=== PATIENT | male | born 1960 | race Caucasian/White ===

== ENCOUNTER 2016-12-18 09:56 | Emergency (ER) | payer OTHER ==
[~2016-12-18 09:56] MED LIST: ASPIR 8181 MG PO; CITALOPRAM HBR40 MG PO; FOLIC ACID1 MG PO; METHOTREXATE2.5 MG PO; MOBIC7.5 MG PO; NORCO 7.5-3251 EACH PO; NORVASC 5 MG TAB5 MG PO; OTEZLA1 EAC1 PO; TYLENOL W/CODEIN1 E1 PO
== END 2016-12-18 12:00 | disposition home or self-care (01) ==
LOC: ER1 09:56
DX: J01.90 Acute sinusitis, unspecified (principal); I10 Essential (primary) hypertension; M06.9 Rheumatoid arthritis, unspecified; Z79.82 Long term (current) use of aspirin; Z79.899 Other long term (current) drug therapy
CPT/HCPCS: 87081; 87880; 99283

== ENCOUNTER → 2016-12-20 | Outpatient (CLI) | payer OTHER | LOC: MRI 09:00 | DX: M54.2 Cervicalgia (principal); M47.22 Other spondylosis with radiculopathy, cervical region; M50.321 Other cervical disc degeneration at C4-C5 level | CPT/HCPCS: 72141 ==

== ENCOUNTER → 2016-12-21 | Outpatient (CLI) | payer OTHER | LOC: MRI 10:11 | DX: M47.24 Other spondylosis with radiculopathy, thoracic region (principal); M54.6 Pain in thoracic spine; M47.816 Spondylosis without myelopathy or radiculopathy, lumbar region; M51.34 Other intervertebral disc degeneration, thoracic region | CPT/HCPCS: 72146; 72148 ==

== ENCOUNTER 2021-09-02 15:07 | Observation (INO) | payer MEDICARE ==
[~2021-09-02] VITALS: Ht 188 cm; Wt 100.0 kg
[~2021-09-02 15:07] MED LIST changes: +ACETAMINOPHEN-1 EAC2 PO; +NEURONTIN600 MG PO; +ZANAFLEX4 M1 PO
[2021-09-02 17:40] LABS: HEMOGLOBIN 14.8 gm/dl (14.0-17.5); RED BLOOD COUNT 5.03 M/UL (4.20-5.50); WHITE BLOOD COUNT 10.9 K/UL (4.5-11.0)
[2021-09-02 17:57] LABS: BUN/CREATININE RATIO 16 (0-10)
[2021-09-02] MEDS ORDERED: METOPROLOL SUCC50 MG PO (19:02)
[2021-09-02] MEDS ORDERED: HYDROCODON-ACE1 EAC2 PO (19:02)
[2021-09-02] MEDS ORDERED: CELECOXIB200 MG PO (19:03)
[2021-09-02] MEDS ORDERED: PAROXETINE HCL10 MG PO (19:03)
[2021-09-02] MEDS ORDERED: RESTORIL15 MG PO (19:03)
--- NOTE | 2021-09-03 09:47 | NUR ---
CONSULT CALLED TO DR PEREZ THIS AM
--- NOTE | 2021-09-03 13:35 | NUR ---
SPOKE WITH DR PEREZ. PATIENT CAN GO HOME PER CARDIOLOGY. INSTRUCT TO FOLLOW UP OUTPATIENT FOR MAURILIO/ABLASION, START DILTIAZEM 240MG DAILY, CONTINUE METOPROLOL.
[2021-09-03] MEDS ORDERED: CARDIZEM CD240 MG PO (15:02)
== END 2021-09-03 16:20 | disposition home or self-care (01) ==
LOC: ER1 15:07 → CDU 18:38 → PROG CARE 18:38 → CDU 09-03 03:23 → PROG CARE 09-03 03:23
PROVIDERS: Physician Assistant; ADMIT Internal Medicine Infectious Disease
DX: I48.91 Unspecified atrial fibrillation (principal); I48.92 Unspecified atrial flutter; I10 Essential (primary) hypertension; M19.90 Unspecified osteoarthritis, unspecified site; Z20.822 Contact with and (suspected) exposure to COVID-19; Z90.49 Acquired absence of other specified parts of digestive tract; Z79.1 Long term (current) use of non-steroidal anti-inflammatories (NSAID); Z79.891 Long term (current) use of opiate analgesic; Z79.899 Other long term (current) drug therapy
CPT/HCPCS: ECHO; 36415; 71045; 80053; 82550; 82553; 83735; 83874; 84439; 84443; 84484; 85025; 85379; 85610; 85730; 93005; 93306; 96374; 99285; G0378; J1160; J1644; U0002

== ENCOUNTER → 2021-10-05 | Outpatient (CLI) | payer MEDICARE ==
[~2021-10-05] MED LIST changes: +CARDIZEM CD240 MG PO; +CELECOXIB200 MG PO; +DILTIAZEM 24HR240 M1 PO; +ELIQUIS5 MG PO; +HYDROCODON-ACE1 EAC2 PO; +METOPROLOL SUCC50 MG PO; +PAROXETINE HCL10 MG PO; +RESTORIL15 MG PO
[2021-10-05 11:22] LABS: HEMOGLOBIN 14.3 gm/dl (14.0-17.5); RED BLOOD COUNT 5.1 M/UL (4.20-5.50); WHITE BLOOD COUNT 6.3 K/UL (4.5-11.0)
[2021-10-06 07:11] LABS: CALCIUM, SERUM 9.4 mg/dL (8.7-10.2); CREATININE, SERUM 0.85 mg/dL (0.76-1.27); POTASSIUM, SERUM 4.4 mmol/L (3.5-5.2)
== END ==
LOC: LAB 10:44
PROVIDERS: Internal Medicine Cardiovascular Disease
DX: I48.92 Unspecified atrial flutter (principal); I10 Essential (primary) hypertension
CPT/HCPCS: 36415; 80048; 85025

== ENCOUNTER → 2021-10-06 | Outpatient (CLI) | payer MEDICARE | LOC: CATH 07:06 | DX: I48.3 Typical atrial flutter (principal); Z87.891 Personal history of nicotine dependence; F31.9 Bipolar disorder, unspecified; K21.9 Gastro-esophageal reflux disease without esophagitis; I10 Essential (primary) hypertension; G43.909 Migraine, unspecified, not intractable, without status migrainosus; M19.90 Unspecified osteoarthritis, unspecified site; Z20.822 Contact with and (suspected) exposure to COVID-19; I08.1 Rheumatic disorders of both mitral and tricuspid valves | CPT/HCPCS: 93005; 93609; 93620; 99152; 99153; C1730; C1733; C1766; J1644; J2250; J3010; J7040 ==